=== PATIENT | female | born 1950 | race Caucasian/White ===

== ENCOUNTER 2017-10-29 13:54 | Day surgery (SDC) | payer MEDICARE, BC ==
[~2017-10-29 13:54] MED LIST: Lidocaine 1% PF 5 ML VIAL ONE; PROPOFOL 200 MG/20 ML VIAL ONE
--- NOTE | 2017-10-29 18:40 | OP ---
DATE OF PROCEDURE: 10/29/2017 OPERATIVE PROCEDURE: 1. Esophagogastroduodenoscopy. 2. Esophagoscopy with disimpaction of foreign body. PREOPERATIVE DIAGNOSIS: Foreign body impaction. POSTOPERATIVE DIAGNOSES: 1. Foreign body impaction. 2. A large piece of broccoli stuck just below upper esophageal sphincter. PROCEDURE IN DETAIL: The patient was placed on left lateral position and [facility] A [employer] video gastroscope under direct vision was passed down the oropharynx, past the upper esophageal sphincter. As soon as the scope was advanced past the upper esophageal sp hincter, there was a large piece of what appears to be a broccoli stuck there. It was difficult to m aneuver, to really remove it as it was just at the upper esophageal sphincter. I tried to use the sc ope as a pusher and tried to push the broccoli piece. Circumferential pressure was applied to the wa ll of the esophagus and I was able to easily push the broccoli into the stomach without difficulty. The mucosa appeared normal. There was a ring at the upper esophagus. The fundus and cardia, gastric body, gastric antrum and duodenum, no pathology. The stomach was decompressed and the scope removed . DISCHARGE PLANNING: This is a 67-year-old female who came in for an EGD because of foreign body impaction. She underwent EGD with disimpaction. DISCHARGE INSTRUCTIONS: 1. The patient advised to call me should she have abdominal pain, chest pain, fever, hematemesis. 2. In the absence of any of her symptoms, the patient will be given the option to come back to me as an outpatient in the near future.
--- NOTE | 2017-10-30 06:30 | CON ---
DATE OF CONSULTATION: 10/29/2017 REFERRING PHYSICIAN: Dr. Maier from the ER Room. REASON FOR CONSULTATION: Dysphagia, foreign body impaction. HISTORY OF PRESENT ILLNESS: Ms. Delilah Vieyra is a very pleasant 67-year-old female with his tory of eating pecan ice-cream this morning at 10:30. When she was eating the ice-cream felt somethi ng stuck to esophagus. She was trying to drink some water, but the water would not go down. She tri ed different liquids, but nothing really went down. The patient says that she ate ice cream, but not colin else. However, questioning that she ate some shrimp for breakfast this morning and also she ate some broccoli pieces. She does not feel anything stuck which was eating the shrimp or the broccoli. Subsequent, she is trying to eat ice cream struck there. She could not swallow water. She h as a history of Sjogren's syndrome, so she had dry mouth constantly and she has no saliva. The patie nt has no prior history of any dysphagia. However, she has had difficulty swallowing big pills off a nd on. I debrided to this because of her dry mouth. She usually eats meat and bread and she has had no problem with coughing and choking during that time period, complaints of dysphagia. Denies any a huma reflux symptoms. There is no abdominal pain, nausea, vomiting as well. No other relevant histor y. ALLERGIES: PENICILLIN, SULFA, CODEINE. SOCIAL HISTORY: The patient is . She does not smoke or drink alcohol. MEDICAL ILLNESSES: 1. Sjogren's syndrome with a dry mouth and dry eyes. 2. Hypertension. 3. Anxiety. 4. Arthritis. 5. Status post cholecystectomy. 6. Status post tubal ligation. 7. Status post bilateral blepharoplasty. MEDICATIONS: List reviewed which included Adderall, , ketorolac, folic acid, Plaquenil, nifedip ine, nitroglycerin. She is also on sildenafil, prednisone, omeprazole, tramadol. REVIEW OF SYSTEMS: Ten-system review unremarkable. PHYSICAL EXAMINATION: GENERAL: This is a very pleasant who appears comfortable. She is awake, alert, and orient ed to time, place, and person. She is a good historian. VITAL SIGNS: Afebrile, pulse 70, blood pressure 120/76. NECK: Supple. No adenitis or thyromegaly noted. CARDIOVASCULAR: First and second heart sounds normal. LUNGS: Clear to auscultation. ABDOMEN: Soft to palpate. No organomegaly. No tenderness. No masses. CLINICAL IMPRESSION: Foreign body impaction, most likely he got a shrimp or broccoli, is very unlike ly to have any pecan piece stuck to esophagus. In the pecan ice-cream does not have a large pecan pi sruthi. PLAN: EGD and disimpaction. Discussed the procedure in detail, sedation, risks like aspirations, se psis, bleeding, perforation. She fully understood the procedure and agreed. Plan emergent EGD.
== END 2017-10-29 18:08 | disposition home or self-care (01) ==
LOC: SCSER 13:54 → SDC/OP 16:15
PROVIDERS: ATTEND Internal Medicine Gastroenterology
PROC: 0DC18ZZ Extirpation of Matter from Upper Esophagus, Via Natural or Artificial Opening Endoscopic (ICD-10-PCS; principal; 2017-10-29)
DX: T18.128A Food in esophagus causing other injury, initial encounter (principal); K22.2 Esophageal obstruction; M35.00 Sjogren syndrome, unspecified; I10 Essential (primary) hypertension; F41.9 Anxiety disorder, unspecified; M19.90 Unspecified osteoarthritis, unspecified site; Z79.899 Other long term (current) drug therapy; Z79.52 Long term (current) use of systemic steroids; Z88.0 Allergy status to penicillin; Z88.2 Allergy status to sulfonamides; Z88.5 Allergy status to narcotic agent
CPT/HCPCS: 99285; J2001; J2704

== ENCOUNTER 2018-12-26 19:59 | Emergency (ER) | payer MEDICARE, BC ==
[2018-12-26] MEDS ORDERED: Adacel (T-DAP) 0.5 ML SYRINGE ONE (20:25)
--- NOTE | 2018-12-26 20:45 | RAD ---
XR Tib Fib Rt Leg 2 View: 12/26/2018 8:21 PM CLINICAL INDICATION: Injury, pain COMPARISON: None. FINDINGS: Fracture:No fracture. Arthropathy:Mild arthropathy. Incidental findings:Soft tissue lucency of the anterolateral right leg, distally IMPRESSION: 1. No acute osseous abnormality. 2. Focal defect of the anterolateral right leg soft tissues, distally, indicative of laceration.
== END 2018-12-26 21:17 | disposition home or self-care (01) ==
LOC: SCSER 19:59
DX: S81.801A Unspecified open wound, right lower leg, initial encounter (principal); S60.811A Abrasion of right wrist, initial encounter; F32.9 Major depressive disorder, single episode, unspecified; W18.30XA Fall on same level, unspecified, initial encounter
CPT/HCPCS: 90471; 90715